=== PATIENT | female | born 2000 | race Caucasian/White ===

== ENCOUNTER 2025-01-26 14:51 | Emergency (ER) | payer BC, SELFPAY ==
[2025-01-26 14:53] VITALS: BP 113/71
[2025-01-26 15:25] LABS: Hematocrit 37.5 % (37.0-47.0); Hemoglobin 12.4 g/dL (12.0-16.0); Mean Corp Hgb Conc. 33.1 g/dL (33.0-37.0); Mean Corpuscular Volume 84.1 fL (81.0-99.0); Nucleated Red Blood Cells % 0 %; Platelet Count 285 10^3/uL (130-400); Red Cell Dist. Width 13.0 % (11.5-14.5)
[2025-01-26 15:38] LABS: HCG, Serum Qualitative Screen Negative
[2025-01-26 15:50] LABS: ALT (SGPT) 27 U/L (0-35); AST (SGOT) 24 U/L (14-36); Albumin 4.4 g/dl (3.5-5.0); Alkaline Phosphatase 67 U/L (38-126); Blood Urea Nitrogen 15 mg/dl (7-17); Calcium 9.4 mg/dl (8.4-10.2); Carbon Dioxide 23 mmol/L (22-30); Chloride 106 mmol/L (98-107); Glucose 86 mg/dl (70-99); Lipase 62 U/L (23-300); Potassium 4.1 mmol/L (3.5-5.1); Sodium 136 mmol/L (135-145); Total Protein 7.8 g/dl (6.3-8.2); eGFR > 60.00
--- NOTE | 2025-01-26 15:50 | ED.GENMED ---
History of Present Illness
General
Chief Complaint: Abdominal Pain
Source: patient
Exam Limitations: none
Time Seen by Provider: 01/26/25 15:34
Nursing documentation reviewed up to this point in time: agreed with
History of Present Illness
History of Present Illness:
24-year-old female with no significant past medical history presents with left-sided abdominal pain times 610 with mild nausea. She states it started gradually increasing last night up to 10 and was there when she woke up this morning. She
states the pain is now constant like 'period cramps but worse.' Had small BM two days ago
Past History
Past History
ED Past Medical History: None
ED Past Surgical History: None
Social History
Tobacco: Non-smoker
Alcohol: Occasional
Personal:
Living: with family
Employment: Employed
Review of Systems
Review of Systems
Allergies reviewed?: Yes
All Other Systems: ROS reviewed and negative except as documented in HPI and ROS
Phy Exam
Physical Exam
Physical Exam:
GENERAL: No acute distress. A&Ox3.
CONSTITUTIONAL: Afebrile.
EYES: clear, conjunctivae normal
ENMT: moist mucus membranes
RESPIRATORY: Regular respirations, nonlabored, lungs clear.
CARDIOVASCULAR: Regular rate and rhythm, no murmurs, no rubs.
GI: Soft, tender to palpate left side abdomen, normal BS
MUSCULOSKELETAL: Moves with ease. Well perfused.
SKIN: Warm, dry, pink
PSYCH: Normal mood and affect. Well kept, interactive and appropriate
NEUROLOGIC: Awake, alert and oriented. No focal neurological deficits
Course
Orders/Labs/Results
Orders:
Orders
01/26/25 14:56
Test Result ONCE
01/26/25 15:00
Complete Blood Count/With Diff Urgent
Comprehensive Metabolic Panel Urgent
HCG, Serum Qualitative Screen Urgent
Lipase Urgent
01/26/25 15:48
Ketorolac [Toradol] 15 mg IV NOW STA
Ondansetron Injectable [Zofran] 4 mg IV NOW STA
01/26/25 15:49
0.9% Sodium Chloride 1000 ml [Nss] 1,000 ml IV BOLUS
Iohexol [Omnipaque] See Protocol PO NOW STA
US Pelvis W Transvag Combined Urgent
Comment:
Reason For Exam: LLQ pain
01/26/25 17:44
CT Abd/pel W Iv And Oral Contr Urgent
Comment:
Reason For Exam: L side abd pain
Iohexol [Omnipaque] See Protocol PO NOW STA
Abnormal Lab Results
01/26/25
15:00
MPV 10.9 H fL
(7.4-10.4)
Abs Immat Gran (auto) 0.1 H 10^3/uL
(0-0.05)
01/26/25 15:00
01/26/25 15:00
Vital Signs
Initial and Last Documented VS:
Initial Vital Signs
Temp Pulse Resp BP Pulse Ox
98.4 F 83 16 113/71 99
01/26/25 14:53 01/26/25 14:53 01/26/25 14:53 01/26/25 14:53 01/26/25 14:53
Last Documented Vital Signs
Temp Pulse Resp BP Pulse Ox
98.4 F 76 18 110/75 99
01/26/25 14:53 01/26/25 19:29 01/26/25 19:29 01/26/25 19:29 01/26/25 19:29
MDM/Problems Addressed
Differential Diagnosis Includes:
Diverticulitis, irritable bowel, constipation, ovarian cyst
MDM/Problems Addressed:
24-year-old female with no significant past medical history presents with left-sided abdominal pain times 6/10 with mild nausea. She states it started gradually increasing last night up to 7/10 and was there when she woke up this morning. She
states the pain is now constant like 'period cramps but worse.' Had small BM two days ago. Denies burning frequency urgency with urination.
Afebrile, NAD
1700:
CBC, CMP normal
hCG negative
Lipase normal
Pelvic and transvaginal ultrasound radiology report read: No evidence for acute abnormality of the pelvis. Will proceed to CAT scan
1930 p.m.:
CT abdomen pelvis with p.o. and IV contrast radiology report read: No acute process in the abdomen or pelvis.
Patient given copies of reports and lab results
She asked what she could do for constipation, we discussed stool softeners, increasing her roughage with fresh fruits and vegetables, drinking plenty of fluid
Nothing and workup to explain her symptoms
She is stable for discharge
*Pulse Oximetry
SaO2: 99
Oxygen Mode of Delivery: Room air
Patient hypoxic: not evaluated
*Critical Care Note
Total Time (30-74mins, 75-104mins- exclusive of procedures): Not Applicable
ED Attending Note
-
Portions of this chart may have been created with voice recognition software.� Occasional wrong word or��sound alike� substitutions may have occurred due to the inherent limitations of voice recognition software.
Discharge Plan
Departure
Patient Disposition: Home (Routine Discharge)
Date of Disposition: 01/26/25
Time of Disposition: 19:57
Patient with high blood pressure during this ER visit?: No
Condition: Good
Discharge Problem:
Abdominal pain
Instructions: Abdominal Pain
Referrals:
Your doctor [Other] - As needed
Activity Restrictions/Additional Instructions:
As we discussed, nothing worrisome in your workup here today.
See your doctor in 1 week if your abdominal pain is not completely gone
Interventions
Interventions:
*Risk Screen - Suicide Last Done: 01/26/25 14:56
*Neglect/Abuse Screening Last Done: 01/26/25 14:56
*Nursing Disposition Last Done: 01/26/25 20:02
RO-Bcoghu-Vwutvbkgpz Assessment Last Done: 01/26/25 16:16
Discharge Date and Time
Discharge Date/Time: 01/26/25 20:12
Print Language: WELSH
[2025-01-26] MEDS: ZOFRAN 4 MG IV (15:56)
[2025-01-26] MEDS: NSS 1000 IV (15:57)
[2025-01-26] MEDS: OMNIPAQUE 50 ML PO (15:57)
[2025-01-26 19:29] VITALS: BP 110/75
== END 2025-01-26 20:12 | disposition home or self-care (01) ==
LOC: EMR 14:51
PROVIDERS: EMERGENCY PHYSICIAN Emergency Medicine
DX: R10.9 Unspecified abdominal pain (principal); K59.00 Constipation, unspecified
CPT/HCPCS: 99284; 96360; 74177; 76830; 76856; 80053; 83690; 84703; 85025; Q9967